=== PATIENT | female | born 1975 | race African-American/Black ===

== ENCOUNTER 2020-09-06 12:17 | Emergency (ER) | payer OTHER ==
[~2020-09-06] VITALS: Ht 175.3 cm; Wt 102.1 kg
[2020-09-06 14:16] VITALS: BP 172/120
== END 2020-09-06 14:24 | disposition home or self-care (01) ==
LOC: M.ERS 12:17
DX: Z20.828 Contact with and (suspected) exposure to other viral communicable diseases (principal); F17.210 Nicotine dependence, cigarettes, uncomplicated

== ENCOUNTER 2020-09-16 17:20 | Emergency (ER) | payer OTHER ==
[~2020-09-16] VITALS: Ht 175.3 cm; Wt 102.1 kg
[2020-09-16 18:41] VITALS: BP 186/112
== END 2020-09-16 18:57 | disposition home or self-care (01) ==
LOC: M.ERS 17:20
DX: Z20.828 Contact with and (suspected) exposure to other viral communicable diseases (principal); F17.210 Nicotine dependence, cigarettes, uncomplicated